=== PATIENT | female | born 1975 | race Caucasian/White ===

== ENCOUNTER 2020-03-18 19:52 | Observation (INO) ==
[2020-03-18] MEDS ORDERED: *HR* Adenosine 6 MG/2 ML SYRINGE IVP ONE (20:00)
[2020-03-18] MEDS ORDERED: Aspirin 81 MG TAB.CHEW PO ONE (20:08)
[2020-03-18] MEDS ORDERED: *HR* Metoprolol 5 MG/5 ML VIAL IVP ONE (20:22)
[2020-03-18] MEDS ORDERED: *HR* Adenosine 6 MG/2 ML VIAL IVP ONE ×3 (20:32→20:42)
[2020-03-18 20:37] LABS: Basophils # 0.1 K/mcL (0.0-0.2); Basophils % 0.6 %; Eosinophils # 0.2 K/mcL (0.0-0.6); Eosinophils % 1.4 %; Hematocrit 41.5 % (35.3-44.9); Hemoglobin 13.7 g/dL (11.5-15.4); Immature Granulocytes % 0.4 % (0-4); Lymphocytes # 4.6 K/mcL (0.6-4.6); Lymphocytes % 31.8 %; Mean Corpuscular Hemoglobin 26.9 pg (28.0-33.3); Mean Corpuscular Volume 81.4 fL (83.0-100.0); Mean Platelet Volume 10.2 fL (9.4-12.4); Monocytes # 0.9 K/mcL (0.0-1.3); Monocytes % 6.2 %; Neutrophils # 8.7 K/mcL (1.6-8.9); Platelet Count 370 K/mcL (140-400); Red Cell Distribution Width 13.9 % (11.5-14.5); Segmented Neutrophils % 59.6 %; White Blood Count 14.5 K/mcL (4.3-11.1)
[2020-03-18] MEDS ORDERED: *HR* Metoprolol 5 MG/5 ML VIAL IVP PRN (20:38)
[2020-03-18 20:44] LABS: INR 1.1; Prothrombin Time 12.4 Seconds (9.4-12.1)
[2020-03-18 20:47] LABS: Activated Partial Thrombo Time 31.1 Seconds (26.0-36.0)
[2020-03-18 20:58] LABS: BUN/Creatinine Ratio 17 (6-26); Blood Urea Nitrogen 11 mg/dL (6-20); Calcium 8.8 mg/dL (8.6-10.3); Carbon Dioxide 22 mEq/L (23-29); Chloride 106 mEq/L (98-107); Glucose 173 mg/dL (70-105); Osmolality,Calculated 288 (280-300); Potassium 3.5 mEq/L (3.5-5.1); Sodium 137 mEq/L (136-145); Troponin I < 0.03 ng/mL (< 0.04); eGFR For African Americans > 60 (> 60); eGFR For Non-African Americans > 60 (> 60)
[2020-03-18] MEDS ORDERED: Potassium Effervescent 25 MEQ TABLET.EFF PO ONE (21:57)
[2020-03-18 22:22] LABS: Magnesium 2.1 mg/dL (1.6-2.6)
[2020-03-18 23:20] LABS: Adenovirus Not Detected (Not Detect); Bordetella Pertussis Not Detected (Not Detect); Chlamydophila pneumoniae Not Detected (Not Detect); Coronavirus 229E Not Detected (Not Detect); Coronavirus HKU1 Not Detected (Not Detect); Coronavirus NL63 Not Detected (Not Detect); Coronavirus OC43 Not Detected (Not Detect); Human Metapneumovirus Not Detected (Not Detect); Human Rhinovirus/Enterovirus Not Detected (Not Detect); Influenza A Subtype 2009 H1 Not Detected (Not Detect); Influenza B Not Detected (Not Detect); Mycoplasma pneumoniae Not Detected (Not Detect); Parainfluenza Virus 1 Not Detected (Not Detect); Parainfluenza Virus 2 Not Detected (Not Detect); Parainfluenza Virus 3 Not Detected (Not Detect); Parainfluenza Virus 4 Not Detected (Not Detect); Respiratory Syncytial Virus Not Detected (Not Detect); SARS-CoV-2 Not Detected (Not Detect)
[2020-03-19] MEDS ORDERED: Naloxone 0.4 MG/ML INJ IVP PRN (07:34)
[2020-03-19] MEDS ORDERED: Acetaminophen 325 MG TABLET PO PRN (07:34)
[2020-03-19] MEDS ORDERED: *HR* HYDROcodone/Acet 5/325 mg TABLET PO PRN (07:34)
[2020-03-19] MEDS ORDERED: Ondansetron 4 MG/2 ML VIAL IVP PRN (07:34)
[2020-03-19] MEDS ORDERED: Perflutren Lipid Microsphere 1.3 ML in 0.9 % Sodium Chloride 8.7 ML IVP PRN (07:37)
[2020-03-19] MEDS: 0.9 % Sodium Chloride 1,000 ML IVC SCH ×2 (07:51→20:24)
[2020-03-19 09:02] LABS: Thyroid Stimulating Hormone 12.257 mcIU/mL (0.340-5.600); Troponin I 0.1 ng/mL (< 0.04)
[2020-03-20] MEDS: Levothyroxine 25 MCG TABLET PO SCH ×2 (05:17→10:33)
[2020-03-20 06:08] LABS: Hematocrit 39.7 % (35.3-44.9); Hemoglobin 12.8 g/dL (11.5-15.4); Mean Corpuscular HGB Conc 32.2 g/dL (31.6-35.5); Mean Corpuscular Hemoglobin 26.1 pg (28.0-33.3); Mean Platelet Volume 9.8 fL (9.4-12.4); Platelet Count 262 K/mcL (140-400); White Blood Count 8.3 K/mcL (4.3-11.1)
[2020-03-20 06:25] LABS: BUN/Creatinine Ratio 20 (6-26); Blood Urea Nitrogen 12 mg/dL (6-20); Calcium 8.8 mg/dL (8.6-10.3); Carbon Dioxide 23 mEq/L (23-29); Chloride 109 mEq/L (98-107); Glucose 91 mg/dL (70-105); Magnesium 2.1 mg/dL (1.6-2.6); Osmolality,Calculated 281 (280-300); Potassium 3.9 mEq/L (3.5-5.1); Sodium 136 mEq/L (136-145); eGFR For African Americans > 60 (> 60); eGFR For Non-African Americans > 60 (> 60)
[2020-03-20] MEDS ORDERED: Regadenoson 0.4 MG/5 ML SYRINGE IVP ONE (06:27)
[2020-03-20 06:37] LABS: Troponin I 0.03 ng/mL (< 0.04)
[2020-03-20] MEDS ORDERED: Aspirin Enteric Coated 81 MG Tablet PO SCH (09:00)
[2020-03-20 12:03] VITALS: BP 139/85
[2020-03-20 12:51] LABS: Triiodothyronine (T3) Free 2.65 pg/mL (2.50-3.90)
[2020-03-21] MEDS ORDERED: *HR* Enoxaparin 40 MG/0.4 ML SYRINGE SQ SCH (06:00)
== END 2020-03-20 14:45 | disposition home or self-care (01) ==
LOC: 2ANU 19:52 → EMEROOARM 19:52 → 2ANU 03-19 00:26
PROVIDERS: ADMIT Internal Medicine; ATTEND Internal Medicine